=== PATIENT | female | born 1960 | race Caucasian/White ===

== ENCOUNTER 2020-07-19 15:24 | Emergency (ER) | payer OTHER ==
[~2020-07-19] VITALS: Ht 147.3 cm; Wt 59.0 kg
[2020-07-19] MEDS ORDERED: BUDESONIDE-FO10.2 G1 INH (15:50)
[2020-07-19] MEDS ORDERED: CALCIUM CITRAT200 MG PO (15:51)
[2020-07-19] MEDS ORDERED: CELEBREX 200 M200 MG PO (15:51)
[2020-07-19] MEDS ORDERED: JANTOVEN2.5 MG PO (15:52)
[2020-07-19] MEDS ORDERED: CENTRUM SILVER1 EAC5 PO (15:52)
[2020-07-19] MEDS ORDERED: LOMOTIL 2.5-0.01 TAB PO (15:53)
[2020-07-19] MEDS ORDERED: IRON325 PO (15:54)
[2020-07-19] MEDS ORDERED: ALLER-EASE180 MG PO (15:55)
[2020-07-19] MEDS ORDERED: FLUOXETINE HCL40 MG PO (15:55)
[2020-07-19] MEDS ORDERED: HYDROXYZINE HCL25 M2 PO (15:57)
[2020-07-19] MEDS ORDERED: LEVSIN0.125 MG SUBLING (15:58)
[2020-07-19] MEDS ORDERED: AMERGE2.5 MG PO (15:59)
[2020-07-19] MEDS ORDERED: MAGNESIUM250 M1 PO (15:59)
[2020-07-19] MEDS ORDERED: OMEPRAZOLE40 MG PO (16:00)
[2020-07-19] MEDS ORDERED: POTASSIUM GLUC500 MG PO (16:05)
[2020-07-19] MEDS ORDERED: PRESERVISION T1 EACH PO (16:09)
[2020-07-19] MEDS ORDERED: TIZANIDINE HCL2 M1 PO (16:09)
[2020-07-19] MEDS ORDERED: TOPROL XL50 MG (16:10)
[2020-07-19] MEDS ORDERED: MEDROLDOSEPACK PO (16:52)
[2020-07-19 17:05] VITALS: BP 98/60
== END 2020-07-19 17:08 | disposition home or self-care (01) ==
LOC: ER 15:24
DX: R06.02 Shortness of breath (principal); T39.8X5A Adverse effect of other nonopioid analgesics and antipyretics, not elsewhere classified, initial encounter; Z87.891 Personal history of nicotine dependence; Z88.2 Allergy status to sulfonamides; Z88.8 Allergy status to other drugs, medicaments and biological substances; Z79.899 Other long term (current) drug therapy; Y92.89 Other specified places as the place of occurrence of the external cause